=== PATIENT | male | born 1980 | race African-American/Black ===

== ENCOUNTER 2020-05-30 12:22 | Emergency (ER) | payer MEDICAID, OTHER ==
[~2020-05-30] VITALS: Ht 190.5 cm; Wt 77.0 kg
[2020-05-30 12:43] VITALS: BP 138/79
== END 2020-05-30 13:25 | disposition home or self-care (01) ==
LOC: ER 12:22
DX: H60.91 Unspecified otitis externa, right ear (principal)
CPT/HCPCS: 99281; 99283

== ENCOUNTER 2020-06-05 05:58 | Emergency (ER) | payer OTHER ==
[~2020-06-05] VITALS: Ht 190.5 cm; Wt 77.0 kg
[2020-06-05] MEDS: VISCOUS LIDOCAINE 2% 15 ML UDC PO STA (08:07)
[2020-06-05] MEDS: MAGNESIUM/ALUMINUM HYDROXIDE/SIMETHICONE 30ML UDC PO STA (08:07)
[2020-06-05] MEDS: DICYCLOMINE 10 MG/5 ML ORAL SYR PO STA (08:07)
[2020-06-05 08:32] LABS: BASOPHILS % 1.3 % (0.0-2.0); EOSINOPHILS % 3.5 % (0.0-5.0); HEMATOCRIT. 44.9 % (42.0-52.0); HEMOGLOBIN. 15.1 g/dL (14.0-18.0); LYMPHOCYTES % 47.4 % (20.0-50.0); MEAN CORPUSCULAR HEMOGLOBIN 31.4 pg (28.0-32.0); MEAN CORPUSCULAR VOLUME 93.5 fL (80.0-94.0); MEAN PLATELET VOLUME 7.4 fl (7.4-10.4); MONOCYTES % 8.2 % (2.0-8.0); NEUTROPHILS % 39.6 % (40.0-76.0); PLATELET 236 x1000/uL (130-400); RED BLOOD CELL COUNT 4.81 mill/uL (4.7-6.1); RED CELL DISTRIBUTION WIDTH 13.7 % (11.6-14.6)
[2020-06-05 08:38] LABS: CHLORIDE 100 mEq/L (98-107)
[2020-06-05 09:51] VITALS: BP 116/68
== END 2020-06-05 09:40 | disposition home or self-care (01) ==
LOC: ER 05:58
DX: R10.13 Epigastric pain (principal)
CPT/HCPCS: 36415; 71045; 80053; 85025; 93005; 99285

== ENCOUNTER 2021-05-17 02:18 | Emergency (ER) | payer MEDICAID, OTHER ==
[~2021-05-17] VITALS: Ht 190.5 cm; Wt 73.0 kg
[2021-05-17] MEDS ORDERED: BENZ-16 MT (03:50)
[2021-05-17 03:55] VITALS: BP 110/72
== END 2021-05-17 03:59 | disposition home or self-care (01) ==
LOC: ER 02:18
DX: J06.9 Acute upper respiratory infection, unspecified (principal); Z79.899 Other long term (current) drug therapy; Z20.822 Contact with and (suspected) exposure to COVID-19
CPT/HCPCS: 71045; 99284; C9803; U0003; U0005

== ENCOUNTER 2021-05-31 05:22 | Emergency (ER) | payer MEDICAID ==
[~2021-05-31] VITALS: Ht 190.5 cm; Wt 79.0 kg
[~2021-05-31 05:22] MED LIST: BENZ-16 MT
[2021-05-31] MEDS ORDERED: OXYMETAZOLINE HCL NASAL SPRAY 15ML BOTHNSTRLS SCH (06:45)
[2021-05-31] MEDS ORDERED: ALBUTEROL 6.7GM HFA INHALER ORI ONE (06:45)
[2021-05-31] MEDS ORDERED: AZIT250T12 MT (07:35)
[2021-05-31] MEDS ORDERED: ALBU18HF2 IH (07:35)
[2021-05-31 08:15] VITALS: BP 112/78
== END 2021-05-31 08:17 | disposition home or self-care (01) ==
LOC: ER 05:22
DX: R05.9 Cough, unspecified (principal); J40 Bronchitis, not specified as acute or chronic; Z20.822 Contact with and (suspected) exposure to COVID-19
CPT/HCPCS: 71045; 87426; 94640; 99284; Z7610

== ENCOUNTER 2021-09-25 16:39 | Emergency (ER) | payer MEDICAID ==
[~2021-09-25] VITALS: Ht 190.5 cm; Wt 81.0 kg
[~2021-09-25 16:39] MED LIST changes: +ALBU18HF2 IH; +AZIT250T12 MT
[2021-09-25 16:44] VITALS: BP 135/105
[2021-09-25] MEDS ORDERED: TETANUS, DIPHTHERIA, PERTUSSIS VAC/PF 0.5ML (>10YR OLD) IM ONE (17:00)
[2021-09-25] MEDS ORDERED: ACETAMINOPHEN 325MG TABLET PO ONE (17:00)
== END 2021-09-25 20:11 | disposition home or self-care (01) ==
LOC: ER 16:39
DX: S05.12XA Contusion of eyeball and orbital tissues, left eye, initial encounter (principal); Y04.0XXA Assault by unarmed brawl or fight, initial encounter; Y93.89 Activity, other specified; Y92.89 Other specified places as the place of occurrence of the external cause; Y99.8 Other external cause status
CPT/HCPCS: 70486; 71101; 72110; 73590; 90471; 90715; 99284

== ENCOUNTER 2022-04-04 14:17 | Emergency (ER) | payer MEDICAID, OTHER ==
[~2022-04-04] VITALS: Ht 190.5 cm; Wt 75.0 kg
[2022-04-04 14:25] VITALS: BP 132/81
[2022-04-04] MEDS ORDERED: KETOROLAC 60MG/2ML VIAL IM ONE (16:15)
[2022-04-04] MEDS ORDERED: ACETAMINOPHEN 325MG TABLET PO ONE (16:15)
[2022-04-04] MEDS ORDERED: TOPUD PO (16:44)
[2022-04-04] MEDS ORDERED: IBUP-2028 MT (16:44)
== END 2022-04-04 17:23 | disposition home or self-care (01) ==
LOC: ER 14:30
DX: S83.8X2A Sprain of other specified parts of left knee, initial encounter (principal); W18.39XA Other fall on same level, initial encounter; Y93.89 Activity, other specified; Y92.89 Other specified places as the place of occurrence of the external cause; Y99.8 Other external cause status; Z79.899 Other long term (current) drug therapy
CPT/HCPCS: 73560; 96372; 99283; J1885; L1830

== ENCOUNTER 2022-05-07 01:42 | Emergency (ER) | payer MEDICAID, OTHER ==
[~2022-05-07] VITALS: Ht 190.5 cm; Wt 71.7 kg
[~2022-05-07 01:42] MED LIST changes: +IBUP-2028 MT; +TOPUD PO
[2022-05-07 04:43] VITALS: BP 101/69
[2022-05-07] MEDS ORDERED: ACETAMINOPHEN WITH CODEINE 300/30MG TABLET PO ONE (04:45)
[2022-05-07] MEDS ORDERED: NAPR-1176 MT (05:53)
[2022-05-07] MEDS ORDERED: CYCL10TA21 MT (05:53)
== END 2022-05-07 06:07 | disposition home or self-care (01) ==
LOC: ER 01:57
DX: M79.604 Pain in right leg (principal)
CPT/HCPCS: 73630; 76881; 93971; 99284

== ENCOUNTER 2022-12-05 16:20 | Emergency (ER) | payer MEDICAID, OTHER ==
[~2022-12-05] VITALS: Ht 190.5 cm; Wt 79.5 kg
[~2022-12-05 16:20] MED LIST changes: +CYCL10TA21 MT; +NAPR-1176 MT
[2022-12-05 16:34] VITALS: BP 122/93
[2022-12-05] MEDS ORDERED: ACETAMINOPHEN 650MG/20.3ML UDC PO ONE (16:45)
[2022-12-05] MEDS ORDERED: IBUPROFEN 600MG TABLET PO ONE (16:45)
[2022-12-05] MEDS ORDERED: NAPR500T7 MT (18:20)
== END 2022-12-05 18:29 | disposition home or self-care (01) ==
LOC: ER 16:20
DX: S80.01XA Contusion of right knee, initial encounter (principal); M25.561 Pain in right knee; Z59.00 Homelessness unspecified; X58.XXXA Exposure to other specified factors, initial encounter; Y93.89 Activity, other specified; Y92.89 Other specified places as the place of occurrence of the external cause; Y99.8 Other external cause status; Z79.899 Other long term (current) drug therapy
CPT/HCPCS: 73560; 99283

== ENCOUNTER 2023-12-26 16:24 | Emergency (ER) | payer MEDICAID, OTHER ==
[~2023-12-26] VITALS: Ht 190.5 cm; Wt 83.0 kg
[~2023-12-26 16:24] MED LIST changes: +NAPR500T7 MT
[2023-12-26 16:27] VITALS: TEMP 98.2; O2SAT 100
[2023-12-26 17:30] VITALS: BP 112/77; PULSE 96; RESP 18
[2023-12-26] MEDS: KETOROLAC 15MG/ML VIAL IM ONE (17:30)
== END 2023-12-26 17:35 | disposition home or self-care (01) ==
LOC: ER 16:24
DX: S83.8X2A Sprain of other specified parts of left knee, initial encounter (principal); X58.XXXA Exposure to other specified factors, initial encounter; Y93.89 Activity, other specified; Y92.89 Other specified places as the place of occurrence of the external cause; Y99.8 Other external cause status
CPT/HCPCS: 99281; J1885

== ENCOUNTER 2024-01-05 21:58 | Emergency (ER) | payer MEDICAID ==
[~2024-01-05] VITALS: Ht 191.8 cm; Wt 79.5 kg
[2024-01-05 22:45] VITALS: TEMP 97.8; O2SAT 99
[2024-01-06 03:15] VITALS: BP 123/95; PULSE 101; RESP 16
[2024-01-06] MEDS: IBUPROFEN 600MG TABLET PO ONE (03:15)
[2024-01-06] MEDS ORDERED: MELO-105 MT (04:23)
== END 2024-01-06 04:53 | disposition home or self-care (01) ==
LOC: ER 21:58
DX: M25.561 Pain in right knee (principal); Z79.899 Other long term (current) drug therapy
CPT/HCPCS: 73560; 99283